=== PATIENT | male | born 1995 | race American Indian/Alaskan Native ===

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

== ENCOUNTER 2017-08-05 05:37 | Emergency (ER) | payer SELFPAY | END 2017-08-05 06:15 | disposition left against medical advice (07) | LOC: ED 05:37 | DX: R10.9 Unspecified abdominal pain (principal); Z53.21 Procedure and treatment not carried out due to patient leaving prior to being seen by health care provider ==

== ENCOUNTER 2019-07-23 18:58 | Emergency (ER) | payer SELFPAY ==
[2019-07-23] MEDS ORDERED: TETANUS,DIPH,PERTUSS(ACELL) VACCINE 0.5 ML SYRINGE IM ONE (19:40)
[2019-07-23] MEDS ORDERED: IBUPROFEN 600 MG TAB PO ONE (19:42)
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
[2019-07-23] MEDS ORDERED: LIDOCAINE (2%) 20 MG/1 ML VIAL 20 ML MDV INFILTRATI STA (21:44)
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
[2019-07-23] MEDS ORDERED: SODIUM CHLORIDE IRRI 500 ML 500 ML IR ONE (22:45)
[2019-07-23] MEDS ORDERED: SODIUM CHLORIDE 0.9% IRR 500 ML BOTTLE IR ONE (22:45)
[2019-07-23 23:14] VITALS: BP 114/89
== END 2019-07-23 23:05 | disposition home or self-care (01) ==
LOC: ED 18:58
DX: S91.312A Laceration without foreign body, left foot, initial encounter (principal); J45.909 Unspecified asthma, uncomplicated; Z79.899 Other long term (current) drug therapy; V89.2XXA Person injured in unspecified motor-vehicle accident, traffic, initial encounter; Y93.89 Activity, other specified; Y92.89 Other specified places as the place of occurrence of the external cause; Y99.8 Other external cause status
CPT/HCPCS: 90471; 90715; 99283

== ENCOUNTER 2019-08-07 20:43 | Emergency (ER) | payer SELFPAY ==
[2019-08-07 20:49] VITALS: BP 145/73
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
== END 2019-08-07 21:34 | disposition home or self-care (01) ==
LOC: ED 20:43
DX: M25.572 Pain in left ankle and joints of left foot (principal); F17.200 Nicotine dependence, unspecified, uncomplicated; J45.909 Unspecified asthma, uncomplicated; Z48.00 Encounter for change or removal of nonsurgical wound dressing; Z48.02 Encounter for removal of sutures; Z79.899 Other long term (current) drug therapy